=== PATIENT | female | born 1950 | race Caucasian/White ===

== ENCOUNTER → 2019-12-03 | Outpatient (CLI) | payer OTHER ==
[~2019-12-03] MED LIST: ATOR10TA PO; CALCIUM PO; DAPA10TA PO; ESTR1TAB17 PO; FENO160T16 PO; INSLAN SQ; LIRA0.6P SQ; LISI-617 PO; MULTIVITAMIN PO; OMEP40CA13 PO
== END | disposition home or self-care (01) ==
LOC: RAH 11:48
PROVIDERS: ATTEND Internal Medicine
DX: M16.0 Bilateral primary osteoarthritis of hip (principal); I10 Essential (primary) hypertension; M85.88 Other specified disorders of bone density and structure, other site
CPT/HCPCS: 71046; 73521

== ENCOUNTER 2020-01-03 07:30 | Inpatient (IN) | payer OTHER ==
[2019-12-28 17:11] LABS: APPEARANCE,URINE Clear (CLEAR); BILIRUBIN,URINE Negative (NEGATIVE); COLOR,URINE Yellow (YELLOW); GLUCOSE, URINE (UA) >=1000 mg/dL (NEGATIVE); KETONES,URINE Negative (NEGATIVE); LEUKOCYTE ESTERASE ,URINE Negative (NEGATIVE); NITRATE,URINE Negative (NEGATIVE); OCCULT BLOOD,URINE Negative (NEGATIVE); PROTEIN,URINE Negative (NEGATIVE); UROBILINOGEN,URINE 0.2 mg/dL (0.2-1.0)
[2019-12-28 17:28] LABS: RBC,URINE 0-1 /HPF (0-1); WBC,URINE 0-1 /HPF (0-1)
[2019-12-28 17:29] LABS: BACTERIA,URINE Rare /HPF (None Seen); SQUAMOUS EPITHELIAL CELL,UR Rare /HPF (0-2)
[2019-12-28 17:30] LABS: INR 0.95 (0.85-1.15); PROTHROMBIN TIME 10.3 SEC (9.6-11.6)
[2019-12-31 11:14] VITALS: BP 147/70
[2020-01-03] VITALS (22 sets, daily range): BP systolic 131–162; BP diastolic 50–77
[~2020-01-03] VITALS: Ht 162.6 cm; Wt 81.5 kg
[~2020-01-03 07:30] MED LIST changes: -DAPA10TA PO; +DOCU-116 PO; +EMPA25TA PO; +ESCI20TA36 PO; -INSLAN SQ; -LIRA0.6P SQ; +LISI-613 PO; -LISI-617 PO; +OZEMPIC SQ
[2020-01-03] MEDS ORDERED: SODIUM CHLORIDE 0.9% 1000ML 1,000 ML IV ONE (08:50)
[2020-01-03] MEDS: CEFAZOLIN SODIUM 1 GM VIAL IVP SCH ×3 (09:00→21:22)
[2020-01-03] MEDS ORDERED: GABA-529 PO (09:11)
--- NOTE | 2020-01-03 09:17 | NUR ---
potential for infection: clipped right hip, rt groin and rt upper thigh per rupert choi, followed by wiping with mikhail: 2% chlorhexidine gluconate cloth patients pre-op skin prep
[2020-01-03] MEDS ORDERED: ROCURONIUM 10MG/1ML SYR 10 MG/ML ML ONE ×2 (09:33→13:57)
[2020-01-03] MEDS ORDERED: PROPOFOL 10 MG/ML 20ML VIAL IV ONE (09:33)
[2020-01-03] MEDS ORDERED: LIDOCAINE PF 2% 5ML ABBOJECT ONE ×2 (09:33→09:34)
[2020-01-03] MEDS ORDERED: SUCCINYLCHOLINE CHLORIDE 20 MG/ML 10 ML VIAL ONE (09:33)
[2020-01-03] MEDS ORDERED: ROPIVACAINE 0.5% 5MG/ML 30ML IJ ONE (09:34)
[2020-01-03] MEDS ORDERED: FENTANYL CITRATE PF 50 MCG/1 ML 2ML VIAL ONE (09:34)
[2020-01-03] MEDS ORDERED: ACETAMINOPHEN EXTRA STRENGTH 500 MG TABLET ONE (09:58)
[2020-01-03] MEDS ORDERED: METOCLOPRAMIDE 10 MG/2 ML VIAL ONE (09:58)
[2020-01-03] MEDS ORDERED: KETOROLAC TROMETHAMINE 15MG/ML ONE (09:58)
[2020-01-03] MEDS ORDERED: CEFAZOLIN SODIUM 1 GM VIAL ONE (09:58)
[2020-01-03] MEDS ORDERED: CELECOXIB 200 MG CAP ONE (09:58)
[2020-01-03] MEDS ORDERED: TRANEXAMIC ACID 1000MG/10ML ONE ×2 (10:45→15:34)
[2020-01-03] MEDS ORDERED: MIDAZOLAM HCL 1 MG/ML 2ML VIAL ONE (10:58)
[2020-01-03] MEDS ORDERED: CEFAZOLIN SODIUM 1 GM VIAL IRRIG ONE (12:34)
[2020-01-03] MEDS ORDERED: NEOSTIGMINE 5MG/5ML SYR IV ONE (15:02)
[2020-01-03] MEDS ORDERED: GLYCOPYRROLATE 1 MG/5 ML SYRINGE ONE (15:02)
[2020-01-03] MEDS ORDERED: SODIUM CHLORIDE 0.9% 1000ML 1,000 ML IV SCH (15:23)
[2020-01-03] MEDS ORDERED: POTASSIUM CHLORIDE 10% ELIXIR 20 MEQ/15 ML UDCUP PO PRN (15:30)
[2020-01-03] MEDS ORDERED: LIDOCAINE HCL-MPF 1% 2ML VIAL IV PRN (15:30)
[2020-01-03] MEDS ORDERED: DiphenhydrAMINE HCL 50 MG/ML VIAL IVP PRN (15:30)
[2020-01-03] MEDS ORDERED: POTASSIUM CHLORIDE 20MEQ/100ML 100 ML IV PRN (15:30)
[2020-01-03] MEDS ORDERED: CALCIUM CARBONATE 500 MG TABLET PO PRN (15:30)
[2020-01-03] MEDS ORDERED: FERROUS FUMARATE 324 MG TABLET PO PRN (15:30)
[2020-01-03] MEDS ORDERED: KETOROLAC TROMETHAMINE 15MG/ML IV PRN (15:30)
[2020-01-03] MEDS ORDERED: OXYCODONE HCL 5 MG TAB PO PRN ×2 (15:30)
[2020-01-03] MEDS ORDERED: POTASSIUM CHLORIDE 20 MEQ ERTAB PO PRN (15:30)
[2020-01-03] MEDS: ACETAMINOPHEN EXTRA STRENGTH 500 MG TABLET PO SCH ×2 (15:30→23:30)
[2020-01-03] MEDS ORDERED: ONDANSETRON HCL 4 MG/2 ML VIAL IVP PRN (15:30)
[2020-01-03] MEDS: INSULIN HUMULIN R 100 UNIT/ML 3ML SQ SCH ×2 (17:16→21:00)
[2020-01-03] MEDS ORDERED: PHARMACY COMMUNICATION MISC SCH (17:45)
[2020-01-03] MEDS ORDERED: PREGABALIN 25 MG CAP PO SCH (21:00)
[2020-01-03] MEDS: CELECOXIB 200 MG CAP PO SCH (21:22)
[2020-01-03] MEDS: GABAPENTIN 100 MG CAPSULE PO SCH (21:23)
[2020-01-03] MEDS: ASPIRIN 81MG TAB.CHEW PO SCH (21:23)
[2020-01-04] VITALS (7 sets, daily range): BP systolic 118–164; BP diastolic 40–75
[2020-01-04] MEDS: CEFAZOLIN SODIUM 1 GM VIAL IVP SCH (04:18)
--- NOTE | 2020-01-04 05:00 | NUR ---
PT DANGELD AT BEDSIDE. PT TOLERATED DANGLE WELL WITH NO DISTRESS NOTED.
[2020-01-04 05:30] LABS: HEMATOCRIT 29.7 % (36-48); MEAN CORPUSCULAR HGB CONC 33.3 g/dL (32.0-36.0); MEAN CORPUSCULAR VOLUME 84.1 fL (79-99); RED BLOOD CELL COUNT(AUTO) 3.53 MIL/uL (4.00-5.50); RED CELL DISTRIBUTION WIDTH 12.3 % (11.0-15.5); WHITE BLOOD COUNT (AUTO) 12.7 K/uL (4.8-10.8)
[2020-01-04 05:39] LABS: POTASSIUM 3.7 mmol/L (3.5-5.1)
[2020-01-04] MEDS: INSULIN HUMULIN R 100 UNIT/ML 3ML SQ SCH ×4 (07:14→21:19)
[2020-01-04] MEDS: ACETAMINOPHEN EXTRA STRENGTH 500 MG TABLET PO SCH ×3 (07:37→23:30)
--- NOTE | 2020-01-04 07:55 | NUR ---
NOTE AAOX3. DENIES PAIN OR DISCOMFORT AT THIS TIME. BBS CLEAR. NO CHEST PAIN. BEDREST UNTIL SEEN BY P.T. HAS BEEN DANGLED AT SIDE OF BED. POD 1 RIGHT MARY. TONE DRESSING NO LEAKS. INTACT. OTHERWISE STABLE.
[2020-01-04] MEDS: EMPAGLIFLOZIN 25MG PO SCH (09:00)
[2020-01-04] MEDS ORDERED: NON-FORMULARY MEDICATION 1 EACH (Empagliflozin (Jardiance) 25 MG) PO SCH (09:00)
[2020-01-04] MEDS ORDERED: NON-FORMULARY MEDICATION 1 EACH (Estradiol 1 MG) PO SCH (09:00)
[2020-01-04] MEDS ORDERED: NON-FORMULARY MEDICATION 1 EACH (Omeprazole 40 MG) PO SCH (09:00)
[2020-01-04] MEDS: ESCITALOPRAM 20MG PO SCH (09:00)
[2020-01-04] MEDS ORDERED: NON-FORMULARY MEDICATION 1 EACH (Fenofibrate 160 MG) PO SCH (09:00)
[2020-01-04] MEDS ORDERED: NON-FORMULARY MEDICATION 1 EACH (Escitalopram Oxalate 20 MG) PO SCH (09:00)
[2020-01-04] MEDS: DOCUSATE SODIUM 100 MG CAP PO SCH (09:51)
[2020-01-04] MEDS: GABAPENTIN 100 MG CAPSULE PO SCH ×2 (09:51→21:16)
[2020-01-04] MEDS: POLYETHYLENE GLYCOL 3350 17 GM POWD.PACK PO SCH (09:51)
[2020-01-04] MEDS: LISINOPRIL 20 MG TABLET PO SCH (09:52)
[2020-01-04] MEDS: FAMOTIDINE 20MG TAB 20 MG TAB PO SCH (09:52)
[2020-01-04] MEDS: PANTOPRAZOLE SODIUM 40 MG TABLET.DR PO SCH (09:52)
[2020-01-04] MEDS: FENOFIBRATE NANOCRYSTALLIZED 145 MG TAB PO SCH (09:52)
[2020-01-04] MEDS: ASPIRIN 81MG TAB.CHEW PO SCH ×2 (09:53→21:16)
[2020-01-04] MEDS: ATORVASTATIN CALCIUM 10 MG TABLET PO SCH (09:53)
[2020-01-04] MEDS: CELECOXIB 200 MG CAP PO SCH ×2 (09:53→21:16)
[2020-01-04] MEDS: TRAMADOL HCL 50 MG TABLET PO PRN ×2 (10:13→22:29)
--- NOTE | 2020-01-04 14:35 | NUR ---
DC PLAN VISITED WITH PATIENT. PATIENT LIVES WITH SPOUSE. INDEPENDENT ABLE TO PERFORM ADL'S. PATIENT HAS NO SERVICES. PER PATIENT DOES NOT NEED 3 IN 1 HAS A SHOWER CHAIR AND RAISED TOILET WITH HAND GUARDS. OKAY TO ORDER WALKER AND HOME HEALTH. EXPLAINED THAT PATIENT IS WELLMED AND THEY PREFER [facility]. SAID THAT WAS FINE. SIGNED PAULY. INFO FAXED. SPOKE TO REP SAID THEY HAVE 20 REFERRALS AND HAVE NOT GOTTEN TO IT. EMAILED WELL IN CASE. LET DIRECTOR KNOW OF POSSIBLE DELAY. Addendum: 01/04/20 at 1438 by RAINA CHANG RN CM Amended: Links added.
[2020-01-04] MEDS: ESTRADIOL 0.5 MG TABLET PO SCH (17:11)
--- NOTE | 2020-01-04 18:00 | NUR ---
NOTE STABLE THROUGHOUT THE DAY. NO DISTRESS. DID WELL WITH P.T. REFER TO NOTES FOR DETAILS. NO OTHER PROBLEMS AT THIS TIME. DR DAVALOS MADE ROUNDS AND THERE IS DC PLANNING FOR TOMORROW WITH P.T. WITH [facility].
[2020-01-05 03:30] VITALS: BP 150/75
[2020-01-05] MEDS: INSULIN HUMULIN R 100 UNIT/ML 3ML SQ SCH ×4 (06:23→21:00)
[2020-01-05] MEDS: ACETAMINOPHEN EXTRA STRENGTH 500 MG TABLET PO SCH ×3 (06:25→23:30)
[2020-01-05 07:30] VITALS: BP 130/59
[2020-01-05] MEDS: DOCUSATE SODIUM 100 MG CAP PO SCH (08:12)
[2020-01-05] MEDS: POLYETHYLENE GLYCOL 3350 17 GM POWD.PACK PO SCH (08:12)
[2020-01-05] MEDS: LISINOPRIL 20 MG TABLET PO SCH (08:12)
[2020-01-05] MEDS: FAMOTIDINE 20MG TAB 20 MG TAB PO SCH (08:12)
[2020-01-05] MEDS: GABAPENTIN 100 MG CAPSULE PO SCH ×2 (08:13→19:21)
[2020-01-05] MEDS: CELECOXIB 200 MG CAP PO SCH ×2 (08:13→19:21)
[2020-01-05] MEDS: ATORVASTATIN CALCIUM 10 MG TABLET PO SCH (08:13)
[2020-01-05] MEDS: ASPIRIN 81MG TAB.CHEW PO SCH ×2 (08:16→19:21)
[2020-01-05] MEDS: FENOFIBRATE NANOCRYSTALLIZED 145 MG TAB PO SCH (08:16)
[2020-01-05] MEDS: TRAMADOL HCL 50 MG TABLET PO PRN ×2 (08:19→23:02)
[2020-01-05] MEDS: EMPAGLIFLOZIN 25MG PO SCH (08:23)
[2020-01-05] MEDS: ESCITALOPRAM 20MG PO SCH (08:23)
[2020-01-05] MEDS: PANTOPRAZOLE SODIUM 40 MG TABLET.DR PO SCH (08:25)
[2020-01-05] MEDS: ESTRADIOL 0.5 MG TABLET PO SCH ×2 (09:00→17:04)
[2020-01-05 11:00] VITALS: BP 133/64
[2020-01-05 16:00] VITALS: BP 130/59
[2020-01-05 20:20] VITALS: BP 130/48
[2020-01-06 00:20] VITALS: BP 136/56
[2020-01-06 04:28] VITALS: BP 138/48
[2020-01-06] MEDS: INSULIN HUMULIN R 100 UNIT/ML 3ML SQ SCH ×2 (06:47→12:17)
[2020-01-06 08:00] VITALS: BP 127/48
[2020-01-06] MEDS: EMPAGLIFLOZIN 25MG PO SCH (08:08)
[2020-01-06] MEDS: ESCITALOPRAM 20MG PO SCH (08:09)
[2020-01-06] MEDS: ESTRADIOL 0.5 MG TABLET PO SCH (09:00)
[2020-01-06] MEDS: PANTOPRAZOLE SODIUM 40 MG TABLET.DR PO SCH (09:00)
--- NOTE | 2020-01-06 09:00 | NUR ---
HELENE BEATTY FOR DR DAVALOS MADE ROUNDS . PER PATIENT STATED ARMY RANGER ASSESSED AND EXPLAINED TO HER SOME SWELLING IS EXPECTED AFTER SURGERY .
[2020-01-06] MEDS: DOCUSATE SODIUM 100 MG CAP PO SCH (09:08)
[2020-01-06] MEDS: TRAMADOL HCL 50 MG TABLET PO PRN ×2 (09:09→15:11)
[2020-01-06] MEDS: LISINOPRIL 20 MG TABLET PO SCH (09:09)
[2020-01-06] MEDS: ATORVASTATIN CALCIUM 10 MG TABLET PO SCH (09:09)
[2020-01-06] MEDS: FENOFIBRATE NANOCRYSTALLIZED 145 MG TAB PO SCH (09:09)
[2020-01-06] MEDS: FAMOTIDINE 20MG TAB 20 MG TAB PO SCH (09:09)
[2020-01-06] MEDS: POLYETHYLENE GLYCOL 3350 17 GM POWD.PACK PO SCH (09:10)
[2020-01-06] MEDS: ASPIRIN 81MG TAB.CHEW PO SCH (09:10)
[2020-01-06] MEDS: GABAPENTIN 100 MG CAPSULE PO SCH (09:11)
[2020-01-06] MEDS: CELECOXIB 200 MG CAP PO SCH (09:18)
[2020-01-06] MEDS: ACETAMINOPHEN EXTRA STRENGTH 500 MG TABLET PO SCH ×2 (09:20→15:12)
[2020-01-06 11:41] VITALS: BP 133/50
--- NOTE | 2020-01-06 13:00 | NUR ---
report given to nurse calvo from [facility]. inforemd on removal of pica dressing on 01/09..
--- NOTE | 2020-01-06 15:00 | NUR ---
pica dressing changed . incision approximated .no signs of bleed . cleaned with betadine. applied new pica dressing . patient toleraed well . pump on and secured Addendum: 01/06/20 at 1923 by JAJA VIDAL RN RN Amended: Links added.
[2020-01-06] MEDS ORDERED: BISACODYL 10 MG SUPP.RECT RC PRN (15:30)
[2020-01-06] MEDS ORDERED: ASPI-1005 PO (15:52)
[2020-01-06] MEDS ORDERED: TRAM50TA4 PO (15:52)
[2020-01-06 16:00] VITALS: BP 146/66
[2020-01-10] MEDS ORDERED: OZEMPIC 0.25 MG SQ SCH ×2 (09:00)
== END 2020-01-06 18:25 | disposition home health service (06) | DRG 470 ==
LOC: DAH 07:30 → DAHIP 07:31 → 3DH 16:40 → UNDODISIN 01-05 22:15
PROVIDERS: ADMIT Orthopaedic Surgery; ATTEND Orthopaedic Surgery
PROC: 0SR90JZ Replacement of Right Hip Joint with Synthetic Substitute, Open Approach (ICD-10-PCS; principal; 2020-01-03 11:25)
DX: M16.11 Unilateral primary osteoarthritis, right hip (principal); I10 Essential (primary) hypertension; K21.9 Gastro-esophageal reflux disease without esophagitis; E11.9 Type 2 diabetes mellitus without complications; M24.551 Contracture, right hip; R26.9 Unspecified abnormalities of gait and mobility; Z88.1 Allergy status to other antibiotic agents; Z88.8 Allergy status to other drugs, medicaments and biological substances
CPT/HCPCS: 36415; 73503; 80048; 81001; 82948; 85027; 85610; 87641; 88304; 88311; 97039; C1776; G0378; J0330; J0690; J1815; J1885; J2001; J2250; J2704; J2710; J2765; J2795; J3010; J3490; J7030

== ENCOUNTER → 2021-11-22 | Outpatient (CLI) | payer OTHER ==
[~2021-11-22] MED LIST changes: +ASPI-1005 PO; -CALCIUM PO; -ESCI20TA36 PO; +ESCI20TA38 PO; +GABA-529 PO; -LISI-613 PO; +LISI20TA24 PO; -MULTIVITAMIN PO; -OMEP40CA13 PO; +OMEP40CA21 PO; +TRAM50TA4 PO
== END | disposition home or self-care (01) ==
LOC: RAH 09:13
PROVIDERS: ATTEND Internal Medicine
DX: Z12.31 Encounter for screening mammogram for malignant neoplasm of breast (principal); N63.11 Unspecified lump in the right breast, upper outer quadrant
CPT/HCPCS: 77067

== ENCOUNTER → 2022-12-03 | Outpatient (CLI) | payer OTHER | END | disposition home or self-care (01) | LOC: RAH 14:57 | PROVIDERS: ATTEND Internal Medicine | DX: Z12.31 Encounter for screening mammogram for malignant neoplasm of breast (principal) | CPT/HCPCS: 77067 ==

== ENCOUNTER → 2024-03-10 | Outpatient (CLI) | payer OTHER | END | disposition home or self-care (01) | LOC: RAH 15:08 | PROVIDERS: ATTEND Internal Medicine | DX: Z12.31 Encounter for screening mammogram for malignant neoplasm of breast (principal); R92.323 Mammographic fibroglandular density, bilateral breasts | CPT/HCPCS: 77067 ==

== ENCOUNTER → 2025-04-25 | Outpatient (CLI) | payer OTHER | END | disposition home or self-care (01) | LOC: RAH 11:38 | PROVIDERS: ATTEND Internal Medicine | DX: Z12.31 Encounter for screening mammogram for malignant neoplasm of breast (principal) | CPT/HCPCS: 77067 ==

== ENCOUNTER → 2025-06-09 | Outpatient (CLI) | payer OTHER ==
--- NOTE | 2025-06-09 13:14 | HMCIMG ---
STUDY: X-RAY OF THE RIGHT FOOT, 3 VIEWS HISTORY: Pain in the right leg. TECHNIQUE: Three views of the right foot are submitted for interpretation. COMPARISON: None provided. FINDINGS: Bones and joints: The visualized bones of the right foot demonstrate normal alignment and mineralization with no evidence of fracture, dislocation, or erosive change. Joint spaces are preserved. A plantar calcaneal spur is present. Soft tissues: The surrounding soft tissues are unremarkable. No soft tissue calcification or radiopaque foreign body is seen. IMPRESSION: * Plantar calcaneal spur. * Otherwise, normal radiographic examination of the right foot. /[place]
--- NOTE | 2025-06-09 13:14 | HMCIMG ---
STUDY: X-RAY OF THE RIGHT KNEE, 3 VIEWS HISTORY: Pain in the right leg. TECHNIQUE: Three views of the right knee are submitted for interpretation. COMPARISON: None provided. FINDINGS: Bones and joint spaces: Mild reduction in the medial tibiofemoral joint space, compatible with early degenerative change. The lateral compartment and patellofemoral joint space are preserved. No fracture, dislocation, or destructive bony lesion is seen. Soft tissues: Periarticular soft tissues are unremarkable. No definite joint effusion or radiopaque foreign body is identified. Vascular structures: Mild vascular calcification is noted adjacent to the knee joint. IMPRESSION: * Mild medial tibiofemoral joint space narrowing of the right knee, consistent with early degenerative change. * Mild vascular calcification about the right knee. * No acute fracture or dislocation. /[place]
--- NOTE | 2025-06-09 13:31 | HMCIMG ---
STUDY: X-RAY OF THE RIGHT ANKLE, 3 VIEWS HISTORY: Pain in the right leg. TECHNIQUE: Three views of the right ankle are submitted for interpretation. COMPARISON: None provided. FINDINGS: Bones and joints: The distal tibia, fibula, talus, calcaneus, and visualized tarsal bones demonstrate normal alignment and mineralization with no evidence of fracture, dislocation, or focal bony lesion. The ankle mortise and visualized joint spaces are preserved. Soft tissues: The surrounding soft tissues are unremarkable with no soft tissue swelling, calcification, or radiopaque foreign body identified. IMPRESSION: * Normal radiographic examination of the right ankle. /[place]
== END | disposition home or self-care (01) ==
LOC: RAH 09:10
PROVIDERS: ATTEND Internal Medicine
DX: M77.31 Calcaneal spur, right foot (principal); M25.861 Other specified joint disorders, right knee; M79.604 Pain in right leg; W19.XXXA Unspecified fall, initial encounter
CPT/HCPCS: 73562; 73610; 73630

== ENCOUNTER 2025-07-22 04:37 | Observation (INO) | payer OTHER ==
[~2025-07-22] VITALS: Ht 162.6 cm; Wt 89.2 kg
--- NOTE | 2025-07-22 04:57 | EKG ---
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
--- NOTE | 2025-07-22 05:16 | ERN ---
General Chief Complaint: Nausea,Vomiting,Diarrhea Stated Complaint: N/V/D, EPIGASTRIC PAIN ONSET 0300 Time Seen by MD: 04:41 Source: patient History of Present Illness Initial Comments PATIENT IS A 75-YEAR-OLD IN COMPLAINING OF NAUSEOUSNESS VOMITING AND DIARRHEA. PER PATIENT THIS BEGAN EARLIER IN THE A.M.. SHE TOOK SOME ANTIEMETICS AND STATES HIS FINALLY KICKING IN. Allergies: Coded Allergies: No Known Drug Allergies (Unverified Allergy, Unknown, 02/25/17) Home Meds Active Scripts Tramadol Hcl (Tramadol HCl) 50 Mg Tablet, 50 MG PO Q6H PRN for pain, #60 TAB Prov:CONNIE DAVALOS MD 01/06/20 Aspirin (ASPIRIN 81MG CHEW TAB) 81 Mg Tab.chew, 81 MG PO BID, #60 TAB.CHEW Prov:CONNIE DAVALOS MD 01/06/20 Reported Medications Gabapentin (Gabapentin) 100 Mg Capsule, 100 MG PO BID, CAP 01/03/20 Escitalopram Oxalate (Escitalopram Oxalate) 20 Mg Tablet, 20 MG PO DAILY, TAB 12/31/19 [Ozempic] No Conflict Check, 0.25 MG SQ QWEEK 12/31/19 Empagliflozin (Jardiance) 25 Mg Tablet, 25 MG PO DAILY, TAB 12/31/19 Docusate Sodium (Colace) 100 Mg Capsule, 200 MG PO DAILY, CAP 12/31/19 Lisinopril (Lisinopril) 20 Mg Tablet, 20 MG PO DAILY, TAB 12/31/19 Fenofibrate (Fenofibrate) 160 Mg Tablet, 160 MG PO DAILY, TAB 02/25/17 Estradiol (Estradiol) 1 Mg Tablet, 1 MG PO DAILY, TAB 02/25/17 Omeprazole (Omeprazole) 40 Mg Capsule.dr, 40 MG PO DAILY, CAP 02/25/17 Atorvastatin Calcium (Lipitor) 10 Mg Tablet, 10 MG PO DAILY, TAB 02/25/17 Past Medical History Past Medical History: Diabetes-Type II, High Cholesterol, Hypertension Past Surgical History: Cholecystectomy, Surgical History Other: BREAST BIOPSY ROS Dictation CONSTITUTIONAL: NO CHILLS, NO FEVER, NO WEAKNESS, NO DIAPHORESIS, NO MALAISE. HEAD/FACE: NO SIGNS OF TRAUMA. EENT: NO EYE PAIN, NO BLURRED VISION, NO TEARING, NO DOUBLE VISION, NO EAR PAIN, NO EAR DISCHARGE, NO NOSE PAIN, NO NASAL CONGESTION, NO THROAT PAIN, NO THROAT SWELLING, NO MOUTH PAIN. RESPIRATORY: NO COUGH, NO ORTHOPNEA, NO SOB, NO STRIDOR, NO WHEEZING. CARDIOVASCULAR: NO CHEST PAIN, NO EDEMA, NO PALPITATIONS, NO SYNCOPE. GASTROINTESTINAL/ABDOMINAL: NO ABDOMINAL PAIN, NO CONSTIPATION, DIARRHEA, NAUSEA, VOMITING. GENITOURINARY: NO ABNORMAL DISCHARGE, NO DYSURIA, NO FREQUENT URINATION, NO HEMATURIA. NO COMPLAINTS OF PAIN IN THE GENITALS. MUSCULOSKELETAL: NO BACK PAIN, NO GOUT, NO JOINT PAIN, NO JOINT SWELLING, NO MUSCLE PAIN, NO MUSCLE STIFFNESS, NO NECK PAIN. INTEGUMENTARY: NO CHANGE IN COLOR, NO CHANGE IN HAIR/NAILS, NO DRYNESS, NO LESION, NO LUMPS, NO RASH. NEUROLOGICAL/PSYCH: NO ANXIETY, NOT DEPRESSED, NO EMOTIONAL PROBLEM, NO HEADACHE, NO NUMBNESS, NO PRE-EXISTING DEFICIT, NO HISTORY OF SEIZURES, NO TREMORS, NO WEAKNESS. HEMATOLOGIC/LYMPHATIC: NOT ANEMIC, NO HISTORY OF BLOOD CLOTS, NO APPARENT BLEEDING, NO BRUISING, GLANDS NOT SWOLLEN. ALL SYSTEMS NEGATIVE, EXCEPT NOTED. Physical Exam Physical Exam Dictation VITAL SIGNS: REVIEWED. GENERAL APPEARANCE: ALERT, ORIENTED X3, NO ACUTE DISTRESS, OBESE. HEAD AND FACE: NON-TRAUMATIC. EYES: PERRL, PINK CONJUNCTIVAS, EYELID NO TRAUMA, ANTERIOR CHAMBER CLEAR. EARS: PINNAS INTACT AND NO SIGNS OF TRAUMA OR ERYTHEMA. EAR CANALS CLEAR AND NO DISCHARGE. TMS NO ERYTHEMA. NOSE: NO DISCHARGE, NO BLEEDING. OROPHARYNX: MOUTH NORMAL, TEETH NO CARIES, TONGUE PINK. PHARYNX CLEAR, NO ERYTHEMA. TONSILS NO EXUDATES, NO ABSCESSES NOTED. MUCOUS MEMBRANE MOIST. NECK: SUPPLE, NON-TENDER, NO THYROMEGALY, NO MASSES, NO JVD, NO BRUITS. BREAST: DEFERRED. CHEST: NO TENDERNESS, NO CREPITUS, NO PARADOXICAL MOVEMENT, NO RETRACTIONS. LUNGS: CLEAR, WELL-VENTILATED, SYMMETRIC, NO RALES, NO WHEEZING, NO RHONCHI, NO STRIDOR, GOOD BREATH SOUNDS BILATERALLY. HEART: REGULAR RATE, REGULAR RHYTHM, NO MURMUR, NO GALLOPS. VASCULAR: NO PERIPHERAL EDEMA. ABDOMEN: SOFT, POSITIVE BOWEL SOUNDS, NONDISTENDED, NO GUARDING, NONTENDER, NO REBOUND, NO MASSES NO HEPATOMEGALY, NO SPLENOMEGALY, NO SUERO'S SIGN, NO HERNIAS. RECTAL: DEFERRED. GENITAL: DEFERRED. NEUROLOGICAL: NORMAL SPEECH, GROSS MOTOR FUNCTION INTACT, GROSS SENSORY FUNCTION INTACT. MUSCULOSKELETAL: NECK NONTENDER, FULL RANGE OF MOTION, BACK NONTENDER, FULL RANGE OF MOTION. EXTREMITIES: NONTENDER, FULL RANGE OF MOTION. SKIN: COLOR PINK, DRY, NO TURGOR, NO RASH, NO LACERATIONS, NO ABRASIONS, NO CONTUSIONS. LYMPHATICS: DEFERRED. Results Laboratory and Microbiology Lab and Micro Result Laboratory Tests Test 07/22/25 04:52 07/22/25 05:03 07/22/25 05:51 Influenza Type A Antigen Negative For Type A Influenza Type B Antigen Negative For Type B SARS-CoV-2, RNA, NAAT NEGATIVE SARS CoV-2 White Blood Count 22.1 K/uL (4.8-10.8) H Red Blood Count 5.62 MIL/uL (4.00-5.50) H Hemoglobin 16.2 g/dL (12.0-16.0) H Hematocrit 47.6 % (36-48) Mean Corpuscular Volume 84.7 fL (79-99) Mean Corpuscular Hemoglobin 28.8 pg (27.0-33.0) Mean Corpuscular Hemoglobin Concent 34.0 g/dL (32.0-36.0) Red Cell Distribution Width 12.1 % (11.0-15.5) Platelet Count 257 K/uL (130-400) Mean Platelet Volume 9.0 fL (7.5-10.5) Immature Granulocyte % (Auto) 0.6 % (0-1) Neutrophils (%) (Auto) 85.0 % (40.0-77.0) H Lymphocytes (%) (Auto) 6.3 % (21.0-51.0) L Monocytes (%) (Auto) 7.0 % (3.0-13.0) Eosinophils (%) (Auto) 0.5 % (0.0-8.0) Basophils (%) (Auto) 0.6 % (0.0-5.0) Neutrophils # (Auto) 18.7 K/uL (1.8-7.7) H Lymphocytes # (Auto) 1.4 K/uL (1.0-4.8) Monocytes # (Auto) 1.5 K/uL (0.1-1.0) H Eosinophils # (Auto) 0.11 K/uL (0.00-0.70) Basophils # (Auto) 0.14 K/uL (0.00-0.20) Absolute Immature Granulocyte (auto 0.14 K/uL (0-1) Nucleated Red Blood Cells 0.0 % (0.0-0.19) White Cell Morphology Comment CONSISTENT W/DIFF Sodium Level 138 mmol/L (136-145) Potassium Level 4.3 mmol/L (3.5-5.1) Chloride Level 101 mmol/L (101-111) Carbon Dioxide Level 29 mmol/L (21-32) Blood Urea Nitrogen 23 mg/dL (7-18) H Creatinine 1.0 mg/dL (0.5-1.0) Glomerular Filtration Rate Calc 59 mL/min (>90) Random Glucose 290 mg/dL (70-105) H Total Calcium 9.4 mg/dL (8.5-10.1) Total Bilirubin 0.6 mg/dL (0.2-1.0) Aspartate Amino Transf (AST/SGOT) 15 U/L (10-37) Alanine Aminotransferase (ALT/SGPT) 22 U/L (12-78) Alkaline Phosphatase 93 U/L (50-136) Troponin I High Sensitivity 28 ng/L (4-50) Total Protein 7.6 g/dL (6.0-8.3) Albumin 3.7 g/dL (3.5-5.0) Lipase 42 U/L (16-77) Urine Color LIGHT-YELLOW (YELLOW) Urine Appearance CLEAR (CLEAR) Urine pH 5.0 (5.0-8.0) Urine Specific [place] 1.031 (1.001-1.031) Urine Protein NEGATIVE mg/dL (NEGATIVE) Urine Glucose (UA) >=1000 mg/dL (NEGATIVE) H Urine Ketones NEGATIVE mg/dL (NEGATIVE) Urine Occult Blood NEGATIVE (NEGATIVE) Urine Nitrate NEGATIVE (NEGATIVE) Urine Bilirubin NEGATIVE mg/dL (NEGATIVE) Urine Urobilinogen 0.2 mg/dL (0.2-1.0) Urine Leukocyte Esterase NEGATIVE Beba/uL Urine RBC 0-1 /HPF (0-1) Urine WBC 0-1 /HPF (0-1) Urine Squamous Epithelial Cells RARE /HPF (0-2) Urine Bacteria None /HPF (None Seen) Labs Reviewed?: Yes EKG/XRAY/US/CT/MRI EKG Comment 07/22/2025 TIME 4:46 A.M. VENTRICULAR RATE 83 SINUS RHYTHM [place] [address] WAVE ELEVATION OR DEPRESSION MDM MDM: DIFFERENTIAL DIAGNOSIS: GASTROENTERITIS, INFECTIOUS GASTROENTERITIS, NAUSEA AND VOMITING, RATIONALE: TESTS CONSIDERED AND ORDERED SECONDARY TO SHARED DECISION MAKING INCLUDE: PREVIOUS OUTSIDE RECORDS REVIEWED: OLD ER VISITS. RISK OF COMPLICATION AND/OR MORBIDITY OR MORTALITY OF PATIENT MANAGEMENT: NONE MEDICATIONS-PER MEDICATION RECONCILIATION NEED FOR HOSPITALIZATION: PATIENT DOES NOT MEET CRITERIA FOR HOSPITALIZATION. NEED FOR EMERGENCY MAJOR/MINOR SURGERY: NO PATIENT IS A 75-YEAR-OLD FEMALE COMING IN COMPLAINING OF DIARRHEA AND VOMITING. PATIENT HAS BEEN HAVING MULTIPLE EPISODES OF DIARRHEA LABORATORY WORKUP POSITIVE FOR ELEVATED WHITE BLOOD CELL COUNT PATIENT RECEIVED IV ROCEPHIN BLOOD CULTURES WERE COLLECTED. PATIENT WILL BE ADMITTED UNDER THE CARE OF FOR ONGOING MGMT. ED Course Orders Procedure Category Date Status Time Cbc With Differential LAB 07/22/25 Complete 04:41 Comprehensive LAB 07/22/25 Complete Metabolic Panel 04:41 Troponin I High LAB 07/22/25 Complete Sensitivity 04:41 Urinalysis Profile LAB 07/22/25 Complete 04:41 12 Lead Ekg Tracing- EKG 07/22/25 Complete Technical 04:41 0.9%Nacl 1000ml (Ns PHA 07/22/25 Complete 1000ml) 05:00 Lipase LAB 07/22/25 Complete 04:41 Influenza Type A & B, LAB 07/22/25 Complete Rapid 04:42 Covid Rna Naat LAB 07/22/25 Complete 04:42 Blood Cult SHAILESH 07/22/25 Logged 05:40 Lactic Acid LAB 07/22/25 In Process 05:40 Ceftriaxone 1g Vial PHA 07/22/25 Complete (Rocephine 1g Inj) 06:00 Current Medications Medications (Trade) Dose Ordered Sig/Gilles Route PRN Reason Start Time Stop Time Status Last Admin Dose Admin Ceftriaxone Sodium (ROCEphine 1G INJ) 1 gm ONCE ONCE IVPB 07/22/25 06:00 07/22/25 06:01 DC Sodium Chloride 1,000 ml @ 0 mls/hr ONCE ONCE IV 07/22/25 05:00 07/22/25 05:01 DC 07/22/25 05:21 Vital Signs Date Time Temp Pulse Resp B/P (MAP) Pulse Ox O2 Delivery O2 Flow Rate FiO2 07/22/25 05:07 96.6 88 16 132/48 100 Room Air* 0 21 07/22/25 04:38 97.3 84 18 119/58 99 Room Air 0 DX & DISP Disposition: Inpatient Decision to Admit Time: 06:18 Departure Impression: Primary Impression: Infectious gastroenteritis Condition: Stable Referrals: TRINA ALFONSO MD (PCP) ABDON MCLAUGHLIN MD Jul 22, 2025 05:16
[2025-07-22 05:17] LABS: IMMATURE GRANULOCYTE ABSOLUTE 0.14 K/uL (0-1); NUCLEATED RED BLOOD CELLS 0.0 % (0.0-0.19); PLATELET COUNT (AUTO) 257 K/uL (130-400); RED BLOOD CELL COUNT(AUTO) 5.62 MIL/uL (4.00-5.50); RED CELL DISTRIBUTION WIDTH 12.1 % (11.0-15.5); WHITE BLOOD COUNT (AUTO) 22.1 K/uL (4.8-10.8)
[2025-07-22 05:20] LABS: SARS-CoV-2, RNA, NAAT NEGATIVE SARS CoV-2 (NEGATIVE)
[2025-07-22] MEDS: 0.9%NACL 1000ML 1,000 ML IV ONE (05:21)
[2025-07-22 05:25] LABS: INFLUENZA TYPE A Negative For Type A (NEGATIVE); INFLUENZA TYPE B Negative For Type B (NEGATIVE)
[2025-07-22 05:29] LABS: ASPARTATE AMINOTRANSFERASE 15.0 U/L (10-37); CREATININE 1.0 mg/dL (0.5-1.0); GLOMERULAR FILTR. RATE CALC 59.0 mL/min (>90); GLUCOSE,RANDOM 290.0 mg/dL (70-105); SODIUM SERUM 138.0 mmol/L (136-145); TOTAL PROTEIN, SERUM 7.6 g/dL (6.0-8.3); UREA NITROGEN, BLOOD 23.0 mg/dL (7-18)
[2025-07-22 05:42] LABS: WBC MORPHOLOGY CONSISTENT W/DIFF
[2025-07-22 06:01] LABS: ADD UA MICROSCOPIC YES; APPEARANCE,URINE CLEAR (CLEAR); GLUCOSE, URINE (UA) >=1000 mg/dL (NEGATIVE); LEUKOCYTE ESTERASE ,URINE NEGATIVE Leu/uL (NEGATIVE); NITRATE,URINE NEGATIVE (NEGATIVE); OCCULT BLOOD,URINE NEGATIVE (NEGATIVE)
[2025-07-22 06:02] LABS: SQUAMOUS EPITHELIAL CELL,UR RARE /HPF (0-2)
[2025-07-22] MEDS: 0.9%NACL 1000ML 1,000 ML IV SCH (06:27)
--- NOTE | 2025-07-22 07:05 | NUR ---
REPORT GIVEN TO ASHER BANERJEE AT THIS TIME
--- NOTE | 2025-07-22 07:58 | NUR ---
Gisella pedroza in [facility] - 07/22/25 at [address] HATHAWAY AT [facility] HEMATOLOGY CONSULT
--- NOTE | 2025-07-22 09:33 | NUR ---
PAGED PHYSICIAN FOR PRN MEDICATIONS
[2025-07-22] MEDS ORDERED: ATOR20TA65 PO (10:08)
[2025-07-22] MEDS ORDERED: ESCI-8 PO (10:10)
[2025-07-22] MEDS ORDERED: HYDR-3420 PO ×2 (10:14→10:23)
[2025-07-22] MEDS ORDERED: GLIP-302 PO (10:14)
[2025-07-22] MEDS ORDERED: EMPA10TA PO ×2 (10:15→10:16)
[2025-07-22] MEDS ORDERED: REPA2TAB8 PO (10:18)
[2025-07-22] MEDS ORDERED: PIOG45TA64 PO (10:18)
[2025-07-22] MEDS ORDERED: INSU3INS10 SQ (10:19)
--- NOTE | 2025-07-22 10:24 | HP ---
HISTORY AND PHYSICAL Date of Visit: Jul 22, 2025 Time of Visit: 10:24 ADMISSION DATE: Jul 22, 2025 at 06:18 CC: NAUSEA VOMITING AND DIARRHEA HPI: THIS IS A 75-YEAR-OLD WOMAN WITH HISTORY OF DM II ON A GLP1 AND INSULIN WHO CAME IN COMPLAINING OF ACUTE ONSET OF NAUSEA VOMITING AND DIARRHEA THAT STARTED ABOUT 3 AM TODAY. SHE REPORTED HAVING ABOUT 10 EPISODES OF DIARRHEA AND MULTIPLE EPISODES OF EMESIS. SHE FELT SHE COULD NOT CONTROL EITHER OF THE VOMITING OR DIARRHEA SO SHE DECIDED TO GET EVALUATED IN THE ER. SHE TOOK SOME ANTIEMETICS SHE HAD AT HOME FROM HER ( [facility] ) AND REPORTED IT HELPED SOME BUT NOT ENOUGH. SHE STILL FELT VERY WEAK AND DECIDED NOT TO WAIT OUT BECAUSE SHE WAS NOT SURE IT WOULD HELP HER COMPLETELY DUE TO THE SEVERITY OF HER SYMPTOMS. NO FEVER OR CHILLS. HAS ABDOMINAL CRAMPS BUT NO SEVERE PAIN AND NO CP SOB PALPITATIONS OR EDEMA. NO ABNORMAL WEIGHT LOSS. 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 RISKS SOCIAL HISTORY: LIVES LOCALLY NO ALCOHOL TOBACCO OR DRUG ABUSE FAMILY HISTORY: + DM BREAST CANCER ^ Patient History: Cancer MOTHER, Onset:60 years & older (BREAST) Diabetes mellitus FATHER, Onset:Unknown Family history: Diabetes mellitus Allergies: Coded Allergies: No Known Drug Allergies (Unverified Allergy, Unknown, 02/25/17) Scheduled Aspirin (Aspirin 81MG Chew Tab), 81 MG PO BID Atorvastatin Calcium (Atorvastatin Calcium), 1 TAB PO DAILY Empagliflozin (Jardiance), 1 TAB PO DAILY Escitalopram Oxalate (Escitalopram Oxalate), 1 TAB PO DAILY Estradiol (Estradiol), 1 MG PO DAILY, (Reported) Gabapentin (Gabapentin), 100 MG PO BID, (Reported) Glipizide (Glipizide ER), 1 TAB PO BID Hydralazine Hcl (Apresoline), 10 MG PO BID Omeprazole (Omeprazole), 40 MG PO DAILY, (Reported) Pioglitazone HCl (Pioglitazone HCl), 1 TAB PO DAILY Repaglinide (Repaglinide), 1 TAB PO TID Scheduled PRN Insulin Glargine/Lixisenatide (Soliqua 100 Unit-33 Mcg/ml Pen), 20 UNITS SQ DAILY PRN for 30 Discontinued Medications Atorvastatin Calcium (Lipitor), 10 MG PO DAILY, (Reported) Empagliflozin (Jardiance), 25 MG PO DAILY, (Reported) Empagliflozin (Jardiance), 10 MG PO DAILY Review of Systems Normal Constitutional:, Normal Eyes:, Normal Ear/Nose/Mouth/Throat, Normal Cardiovascular:, Normal Respiratory:, Normal Genitourinary:, Normal Integumentary:, Normal Musculoskeletal:, Normal Neurological:, Normal Psychological:, Normal Endocrine:, Normal Hematologic/Lymphatic:, Normal Allergic/Immunologic:; Abnormal Gastrointestinal: (REFER TO HPI AND NO BLOOD IN STOOL AND NO HEMATEMESIS AND NO DARK TARRY STOOLS) Physical Exam Vital Signs Vital Signs Date Time Temp Pulse Resp B/P (MAP) Pulse Ox O2 Delivery O2 Flow Rate FiO2 07/22/25 04:38 97.3 84 18 119/58 99 Room Air 0 07/22/25 05:07 21 Appearance: Obese Eyes: Clear, PERRL, EOM Normal Ear/Nose/Mouth/Throat: Landmarks WNL, Hearing WNL, Dentition WNL Neck: Symmetric, trach midline, Thyroid WNL Cardiovascular: PMI WNL, Regular Rate, Regular Rhythm, No Edema G.I.: Normal bowel sounds, No rebound tenderness Lymphatic: No lymphadenopathy neck, No lymphadenopathy axilla, No lymphadenopathy groin Skin: No rash/ulcers Neurology: Nerves I-XII intact, Sensation WNL Psychology: Insight WNL, Orientation WNL, Memory WNL, Affect WNL Diagnostics Laboratory Tests Test 07/22/25 04:52 07/22/25 05:03 07/22/25 05:51 07/22/25 06:00 Range/Units Influenza Type A Antigen Negative For Type A NEGATIVE Influenza Type B Antigen Negative For Type B NEGATIVE SARS-CoV-2, RNA, NAAT NEGATIVE SARS CoV-2 NEGATIVE White Blood Count 22.1 4.8-10.8 K/uL Red Blood Count 5.62 4.00-5.50 MIL/uL Hemoglobin 16.2 12.0-16.0 g/dL Hematocrit 47.6 36-48 % Mean Corpuscular Volume 84.7 79-99 fL Mean Corpuscular Hemoglobin 28.8 27.0-33.0 pg Mean Corpuscular Hemoglobin Concent 34.0 32.0-36.0 g/dL Red Cell Distribution Width 12.1 11.0-15.5 % Platelet Count 257 130-400 K/uL Mean Platelet Volume 9.0 7.5-10.5 fL Immature Granulocyte % (Auto) 0.6 0-1 % Neutrophils (%) (Auto) 85.0 40.0-77.0 % Lymphocytes (%) (Auto) 6.3 21.0-51.0 % Monocytes (%) (Auto) 7.0 3.0-13.0 % Eosinophils (%) (Auto) 0.5 0.0-8.0 % Basophils (%) (Auto) 0.6 0.0-5.0 % Neutrophils # (Auto) 18.7 1.8-7.7 K/uL Lymphocytes # (Auto) 1.4 1.0-4.8 K/uL Monocytes # (Auto) 1.5 0.1-1.0 K/uL Eosinophils # (Auto) 0.11 0.00-0.70 K/uL Basophils # (Auto) 0.14 0.00-0.20 K/uL Absolute Immature Granulocyte (auto 0.14 0-1 K/uL Nucleated Red Blood Cells 0.0 0.0-0.19 % White Cell Morphology Comment CONSISTENT W/DIFF Sodium Level 138 136-145 mmol/L Potassium Level 4.3 3.5-5.1 mmol/L Chloride Level 101 101-111 mmol/L Carbon Dioxide Level 29 21-32 mmol/L Blood Urea Nitrogen 23 7-18 mg/dL Creatinine 1.0 0.5-1.0 mg/dL Glomerular Filtration Rate Calc 59 >90 mL/min Random Glucose 290 70-105 mg/dL Total Calcium 9.4 8.5-10.1 mg/dL Total Bilirubin 0.6 0.2-1.0 mg/dL Aspartate Amino Transf (AST/SGOT) 15 10-37 U/L Alanine Aminotransferase (ALT/SGPT) 22 12-78 U/L Alkaline Phosphatase 93 50-136 U/L Troponin I High Sensitivity 28 4-50 ng/L Total Protein 7.6 6.0-8.3 g/dL Albumin 3.7 3.5-5.0 g/dL Lipase 42 16-77 U/L Urine Color LIGHT-YELLOW YELLOW Urine Appearance CLEAR CLEAR Urine pH 5.0 5.0-8.0 Urine Specific [place] 1.031 1.001-1.031 Urine Protein NEGATIVE NEGATIVE mg/dL Urine Glucose (UA) >=1000 NEGATIVE mg/dL Urine Ketones NEGATIVE NEGATIVE mg/dL Urine Occult Blood NEGATIVE NEGATIVE Urine Nitrate NEGATIVE NEGATIVE Urine Bilirubin NEGATIVE NEGATIVE mg/dL Urine Urobilinogen 0.2 0.2-1.0 mg/dL Urine Leukocyte Esterase NEGATIVE NEGATIVE Beba/uL Urine RBC 0-1 0-1 /HPF Urine WBC 0-1 0-1 /HPF Urine Squamous Epithelial Cells RARE 0-2 /HPF Urine Bacteria None None Seen /HPF Lactic Acid Level 2.6 0.8-2.5 mmol/L Test 07/22/25 09:43 Range/Units Lactic Acid Level 2.2 0.8-2.5 mmol/L Assessment/Plan Assessment/Plan ASSESSMENT: THIS IS A 75 YR OLD WOMAN WITH HISTORY OF ALLERGIC RHINITIS LUMBAR RADICULOPATHY W/ SCIATIC NERVE COMPRESSION OSTEOPENIA DM II WITH CKD 3 A UNCONTROLLED ON SNF INSULIN DM II WITH DIABETIC POLYNEUROPATHY ATHEROSCLEROSIS OF BILATERAL LOWER EXTREMITIES HYPERTENSIVE RENAL DISC W CKD 3 A HYPERLIPIDEMIA - MIXED GERD MARIA DEL ROSARIO MAJOR DEPRESSIVE DISORDER, SINGLE EPISODE, MODERATE RIGHT HIP SEVER 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/2019 E[employer] CHIEF HRT - UNDERSTANDS RISKS SHE PRESENTED WITH ACUTE GASTROENTERITIS, DEHYDRATION WITH PERSISTENT N/V AND DIARRHEA UNCONTROLLED HYPERGLYCEMIA PLAN: IVF HYDRATION ANTI EMETICS PRN STOOLS FOR WBC SUPPLEMENT ELECTROLYTES HOLD GLP1 CONT INSULIN ADJUSTMENTS NEEDED ANTI DIARRHEALS PRN ADVANCE DIET TOLERATED INC REHAB TOLERATED DVT PROPHYLAXIS WITH LOVENOX CONT PPI FOR GERD AND STRESS ULCER PROPHYLAXIS ANSWERED ALL QUESTIONS AT BEDSIDE TRINA ALFONSO MD Jul 22, 2025 10:24
[2025-07-22] MEDS ORDERED: PoTASSium chl 10% ELIXIR 20MEQ 20 MEQ/15 ML UDCUP PO PRN (10:30)
[2025-07-22] MEDS ORDERED: PoTASSium chloRIDE 20MEQ ER 20 MEQ ERTAB PO PRN (10:30)
[2025-07-22] MEDS ORDERED: DEXTROSE 50%-WATER 50 ML DISP.SYRIN IV PRN (10:30)
[2025-07-22] MEDS ORDERED: GLUCAGON 1MG KIT 1 MG ML IM PRN (10:30)
--- NOTE | 2025-07-22 10:53 | NUR ---
DR ALFONSO AT BEDSIDE
[2025-07-22] MEDS: REPAGLINIDE 1 MG TAB PO SCH (11:30)
[2025-07-22] MEDS: LOPERAMIDE HCL 2 MG CAP PO PRN (12:12)
--- NOTE | 2025-07-22 16:42 | NUR ---
DCP: HOME Pt currently lives at home with her . Pt does have a walker and cane that they use to ambulate. Pt denies having home health or a provider. Pt states that she can complete ADLs independently. PCP is Dr Rosa Maria Alamo and uses [facility] for any RX needs. At DC pt will want to go home and family can assist with transportation.
[2025-07-22 20:00] VITALS: O2SAT 99
[2025-07-22 21:19] VITALS: BP 121/54; PULSE 92; RESP 18; TEMP 97.6
[2025-07-23] VITALS: BP 112/42; PULSE 86; RESP 18; TEMP 97.5
[2025-07-23 04:00] VITALS: BP 123/61; PULSE 84; RESP 20; TEMP 97.8
[2025-07-23 04:26] LABS: NUCLEATED RED BLOOD CELLS 0.0 % (0.0-0.19); PLATELET COUNT (AUTO) 175.0 K/uL (130-400); RED BLOOD CELL COUNT(AUTO) 4.38 MIL/uL (4.00-5.50); RED CELL DISTRIBUTION WIDTH 12.3 % (11.0-15.5); WHITE BLOOD COUNT (AUTO) 9.9 K/uL (4.8-10.8)
[2025-07-23 08:00] VITALS: BP 130/47; PULSE 78; RESP 20; TEMP 98
[2025-07-23] MEDS: ESCITALOPRAM OXALATE PO SCH (08:34)
[2025-07-23] MEDS: ENOXAPARIN SODIUM 30 MG/0.3 ML SQ SCH (08:41)
[2025-07-23] MEDS: EMPAGLIFLOZIN 10MG TABLET PO SCH (08:41)
[2025-07-23] MEDS: ESTRADIOL 0.5 MG TABLET PO SCH (08:42)
[2025-07-23] MEDS: PIOGLITAZONE 45MG TAB PO SCH (08:44)
[2025-07-23 12:00] VITALS: BP 119/55; PULSE 79; RESP 20; TEMP 97.9
[2025-07-23] MEDS ORDERED: LEVO250T75 PO (12:50)
--- NOTE | 2025-07-23 12:52 | DS ---
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 INSULIN DM II WITH DIABETIC POLYNEUROPATHY ATHEROSCLEROSIS OF BILATERAL LOWER EXTREMITIES HYPERTENSIVE RENAL DISC W CKD 3 A HYPERLIPIDEMIA - MIXED GERD MARIA DEL ROSARIO MAJOR DEPRESSIVE DISORDER, SINGLE EPISODE, MODERATE RIGHT HIP SEVER 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/2019 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 RESUME PREVIOUS HOME MEDS AND INCREASE SOLIQUA TO 30 UNITS DAILY ADD LEVAQUIN 250 MG PO DAILY X 3 MORE DAYS ^ Home Meds Active Scripts Insulin Glargine/Lixisenatide (Soliqua 100 Unit-33 Mcg/ml Pen) 100 Unit-33 Mcg/Ml (3 Ml) Insuln.pen, 30 UNITS SQ DAILY PRN for 30 for 30 Days, #30 SYRINGE Prov:ROSA MARIA ALAMO MD 07/23/25 Levofloxacin (Levofloxacin) 250 Mg Tablet, 250 MG PO DAILY for 3 Days, #3 TAB Prov:ROSA MARIA ALAMO MD 07/23/25 Hydralazine Hcl (APRESOLINE) 10 Mg Tablet, 10 MG PO BID for 60 Days, #60 TAB Prov:ROSA MARIA ALAMO MD 07/22/25 Repaglinide (Repaglinide) 2 Mg Tablet, 1 TAB PO TID for 30 Days, #90 TAB 0 Refills Prov:ROSA MARIA ALAMO MD 07/22/25 Pioglitazone HCl (Pioglitazone HCl) 45 Mg Tablet, 1 TAB PO DAILY for 30 Days, #30 TAB 0 Refills Prov:ROSA MARIA ALAMO MD 07/22/25 Empagliflozin (Jardiance) 10 Mg Tablet, 1 TAB PO DAILY for 30 Days, #30 TAB 0 Refills Prov:ROSA MARIA ALAMO MD 07/22/25 Glipizide (Glipizide ER) 10 Mg Tab.er.24, 1 TAB PO BID for 30 Days, #30 TAB 0 Refills Prov:ROSA MARIA ALAMO MD 07/22/25 Escitalopram Oxalate (Escitalopram Oxalate) 10 Mg Tablet, 1 TAB PO DAILY for 30 Days, #30 TAB 0 Refills Prov:ROSA MARIA ALAMO MD 07/22/25 Atorvastatin Calcium (Atorvastatin Calcium) 20 Mg Tablet, 1 TAB PO DAILY for 30 Days, #30 TAB 0 Refills Prov:ROSA MARIA ALAMO MD 07/22/25 Aspirin (ASPIRIN 81MG CHEW TAB) 81 Mg Tab.chew, 81 MG PO BID, #60 TAB.CHEW Prov:CONNIE DAVALOS MD 01/06/20 Reported Medications Gabapentin (Gabapentin) 100 Mg Capsule, 100 MG PO BID, CAP 01/03/20 Estradiol (Estradiol) 1 Mg Tablet, 1 MG PO DAILY, TAB 02/25/17 Omeprazole (Omeprazole) 40 Mg Capsule.dr, 40 MG PO DAILY, CAP 02/25/17 Discontinued Reported Medications Empagliflozin (Jardiance) 25 Mg Tablet, 25 MG PO DAILY, TAB 12/31/19 Atorvastatin Calcium (Lipitor) 10 Mg Tablet, 10 MG PO DAILY, TAB 02/25/17 Discontinued Scripts Empagliflozin (Jardiance) 10 Mg Tablet, 10 MG PO DAILY, #30 TAB Prov:ROSA MARIA ALAMO MD 07/22/25 ROSA MARIA ALAMO MD Jul 23, 2025 12:52
[2025-07-23] MEDS ORDERED: INSU3INS10 SQ (12:59)
--- NOTE | 2025-07-23 13:36 | NUR ---
DISCHARGE PT A&OX4. PT DENIES PAIN, NAUSEA, AND VOMITING. DC'D IV PT AWARE TO FOLLOW UP WITH DR. ALFONSO WITHIN 2-5 DAYS. PT AWARE OF NEW PRESCRIPTION SENT TO PHARMACY AND MEDICATION CHANGES TO INSULIN. NO QUESTIONS AT THIS TIME. PT WAITING FOR RIDE HOME.
== END 2025-07-23 13:36 | disposition home or self-care (01) ==
LOC: EDH 04:37 → UNDOADMOB 06:18 → EDHIP 06:18 → INTOOBSV 06:18 → 3BH 20:54 → EDHIP 20:54 → 3BH 07-23 11:56
PROVIDERS: ADMIT Internal Medicine; ATTEND Internal Medicine
DX: K52.9 Noninfective gastroenteritis and colitis, unspecified (principal); R11.2 Nausea with vomiting, unspecified; E11.65 Type 2 diabetes mellitus with hyperglycemia; I12.9 Hypertensive chronic kidney disease with stage 1 through stage 4 chronic kidney disease, or unspecified chronic kidney disease; E11.22 Type 2 diabetes mellitus with diabetic chronic kidney disease; E11.42 Type 2 diabetes mellitus with diabetic polyneuropathy; E78.00 Pure hypercholesterolemia, unspecified; E86.0 Dehydration; F32.1 Major depressive disorder, single episode, moderate; K21.9 Gastro-esophageal reflux disease without esophagitis; M54.16 Radiculopathy, lumbar region; N18.31 Chronic kidney disease, stage 3a; J30.9 Allergic rhinitis, unspecified; Z20.822 Contact with and (suspected) exposure to COVID-19; Z79.4 Long term (current) use of insulin; Z79.82 Long term (current) use of aspirin; Z79.84 Long term (current) use of oral hypoglycemic drugs; Z79.899 Other long term (current) drug therapy; Z98.890 Other specified postprocedural states
CPT/HCPCS: 96374; 96361 ×2; 99284; 84484; 84132; 80053; 83690; 85025; 87040 ×2; 87804 ×2; 82948 ×5; 83605 ×2; 81001; 36415 ×2; 87635; 93005; 83630; 96372; 85027; J1815 ×6; G0378; J7030; J0696; J1650